=== PATIENT | female | born 1955 | race Caucasian/White ===

== ENCOUNTER 2022-12-27 18:19 | Inpatient (IN) | payer MEDICARE, OTHER ==
[2022-12-27 18:29] LABS: BASE EXCESS ARTERIAL -0.3 mm/L; BICARBONATE,ARTERIAL 21.6 mmol/L (22.0-26.0); CARBOXYHEMOGLOBIN 2.3 % (0.0-1.6); METHEMOGLOBIN 0.6 %; O2 SATURATION ARTERIAL 92.4 % (95.0-98.0); OXYHEMOGLOBIN 89.7 %; PCO2 ARTERIAL 27.1 mmHg (35.0-42.0); PO2 ARTERIAL 61.5 mmHg (75.0-100.0); TOTAL HEMOGLOBIN 10.3 g/dL (12.0-16.0)
[2022-12-27 18:30] LABS: LACTIC ACID 2.8 mmol/L (0.4-2.0)
[2022-12-27] MEDS ORDERED: Sodium Chloride 0.9% 1,000 ML IV SCH ×2 (18:30→22:00)
[2022-12-27 18:35] LABS: BASOPHILS ABSOLUTE AUTO 0.02 K/uL (0.00-0.10); BASOPHILS PERCENT AUTO 0.4 % (0.1-1.3); EOSINOPHILS ABSOLUTE AUTO 0.12 K/uL (0.00-0.40); EOSINOPHILS PERCENT AUTO 2.1 % (0.0-5.4); HEMATOCRIT 31.7 % (34.3-46.0); HEMOGLOBIN 10.1 g/dL (11.2-15.5); IMMATURE GRAN ABSOLUTE AUTO 0.02 K/uL (0.00-0.23); IMMATURE GRAN PERCENT AUTO 0.4 % (0.0-0.7); LYMPHOCYTES ABSOLUTE AUTO 0.46 K/uL (0.8-3.3); LYMPHOCYTES PERCENT AUTO 8.1 % (11.4-47.7); MEAN CORPUSCULAR HEMOGLOBIN 27.7 pg (31.6-35.5); MEAN CORPUSCULAR HGB CONC 31.9 g/dL (31.6-35.5); MEAN CORPUSCULAR VOLUME 86.8 fL (81.4-99.0); MONOCYTES ABSOLUTE AUTO 0.21 K/uL (0.20-0.90); MONOCYTES PERCENT AUTO 3.7 % (3.3-12.6); NEUTROPHILS ABSOLUTE AUTO 4.88 K/uL (1.0-7.6); NEUTROPHILS PERCENT AUTO 85.3 % (40.0-78.1); PLATELET COUNT,PLT 110 K/uL (130-375); RED BLOOD CELL COUNT 3.65 M/uL (3.77-5.24); WHITE BLOOD CELL COUNT,WBC 5.7 K/uL (3.2-11.0)
[2022-12-27] MEDS ORDERED: cefTRIAXone 1 GM in Sodium Chloride 0.9% 50 ML IV ONE (18:45)
[2022-12-27 18:51] LABS: APPEARANCE,URINE CLEAR (CLEAR); BILIRUBIN,URINE NEGATIVE (NEGATIVE); COLOR,URINE YELLOW (YELLOW); GLUCOSE,URINE NEGATIVE (NEGATIVE); KETONES,URINE NEGATIVE (NEGATIVE); LEUKOCYTE ESTERASE,URINE MODERATE (NEGATIVE); NITRITE,URINE POSITIVE (NEGATIVE); OCCULT BLOOD,URINE MODERATE (NEGATIVE); PH,URINE 5.5 (5.0-8.0); PROTEIN,URINE 30 mg/dL (NEGATIVE); UROBILINOGEN,URINE 0.2 EU/dL (0.2-1.0)
[2022-12-27 18:56] LABS: AMORPHOUS SEDIMENT,URINE NOT SEEN; BACTERIA,URINE MANY; EPITHELIAL CELLS,URINE RARE; MUCUS,URINE RARE; WBC,URINE 50-75 (0-5)
[2022-12-27 18:58] LABS: A/G RATIO 0.7 (1.2-2.2); ALANINE AMINOTRANSFERASE,ALT 33 U/L (12-78); ALBUMIN 3.3 g/dL (3.4-5.0); ALKALINE PHOSPHATASE 60 U/L (46-116); ASPARTATE AMNIOTRANSFERASE,AST 36 U/L (15-37); BLOOD UREA NITROGEN,BUN 32 mg/dL (7-18); CALCIUM 8.3 mg/dL (8.5-10.1); CARBON DIOXIDE,CO2 23 mmol/L (21-32); CHLORIDE,CL 102 mmol/L (100-108); CREATININE 1.6 mg/dL (0.6-1.0); ESTIMATED GFR 35 mL/min (>60); GLUCOSE RANDOM 171 mg/dL (74-106); PROTEIN TOTAL,TP 7.8 g/dL (6.4-8.2); SODIUM,NA 138 mmol/L (140-148); TROPONIN I HIGH SENSITIVITY 9.4 pg/mL (<=60.3)
[2022-12-27] MEDS ORDERED: Acetaminophen 500 MG Tab PO ONE (18:58)
[2022-12-27 20:29] LABS: INR 1.5; PROTHROMBIN TIME 15.2 sec (9.2-10.6)
[2022-12-27] MEDS ORDERED: Ondansetron 4 MG Tab.DIS PO PRN (21:11)
[2022-12-27] MEDS ORDERED: Magnesium Hydroxide 400 MG/5 ML Susp 30 ML Cup PO PRN (21:11)
[2022-12-27] MEDS ORDERED: Sennosides/Docusate Sodium 50-8.6 MG Tab PO PRN (21:11)
[2022-12-27] MEDS ORDERED: Ondansetron 4 MG/2 ML SDV IV PRN (21:11)
[2022-12-27] MEDS ORDERED: Melatonin 3 MG Tab PO PRN (21:11)
[2022-12-27] MEDS ORDERED: Ibuprofen 600 MG Tab PO ONE (22:23)
[2022-12-27] MEDS: Insulin Lispro 100 Unit/ML 3 ML KwikPen SUBCUT SCH (22:45)
[2022-12-27] MEDS: Methadone 5 MG Tab PO SCH (23:51)
[2022-12-28] MEDS ORDERED: Warfarin 5 MG Tab PO SCH (00:45)
[2022-12-28 04:41] LABS: BASOPHILS PERCENT AUTO 0.2 % (0.1-1.3); EOSINOPHILS ABSOLUTE AUTO 0.03 K/uL (0.00-0.40); EOSINOPHILS PERCENT AUTO 0.5 % (0.0-5.4); HEMOGLOBIN 8.4 g/dL (11.2-15.5); IMMATURE GRAN PERCENT AUTO 0.4 % (0.0-0.7); LYMPHOCYTES ABSOLUTE AUTO 0.78 K/uL (0.8-3.3); LYMPHOCYTES PERCENT AUTO 13.8 % (11.4-47.7); MEAN CORPUSCULAR HEMOGLOBIN 27.1 pg (31.6-35.5); MEAN CORPUSCULAR HGB CONC 31.1 g/dL (31.6-35.5); MEAN CORPUSCULAR VOLUME 87.1 fL (81.4-99.0); MONOCYTES ABSOLUTE AUTO 0.52 K/uL (0.20-0.90); MONOCYTES PERCENT AUTO 9.2 % (3.3-12.6); NEUTROPHILS ABSOLUTE AUTO 4.31 K/uL (1.0-7.6); NEUTROPHILS PERCENT AUTO 75.9 % (40.0-78.1); PLATELET COUNT,PLT 88 K/uL (130-375); WHITE BLOOD CELL COUNT,WBC 5.7 K/uL (3.2-11.0)
[2022-12-28 04:43] LABS: BASOPHILS ABSOLUTE AUTO 0.01 K/uL (0.00-0.10); IMMATURE GRAN ABSOLUTE AUTO 0.02 K/uL (0.00-0.23)
[2022-12-28 04:52] LABS: INR 1.6; PROTHROMBIN TIME 15.6 sec (9.2-10.6)
[2022-12-28 04:54] LABS: CALCIUM 7.6 mg/dL (8.5-10.1); CREATININE 1.6 mg/dL (0.6-1.0); EST CRCL DRUG DOSING (CG) 25.04 mL/min; POTASSIUM,K 3.5 mmol/L (3.6-5.2)
[2022-12-28 05:02] LABS: ANION GAP 13.5 mmol/L (5.0-14.0)
[2022-12-28] MEDS: Acetaminophen 325 MG Tab PO PRN ×2 (07:54→13:27)
[2022-12-28] MEDS: Methadone 5 MG Tab PO SCH ×2 (08:13→20:57)
[2022-12-28] MEDS ORDERED: Potassium Chloride 20 MEQ Tab.ER PO ONE ×2 (09:00→17:00)
[2022-12-28] MEDS: Losartan 50 MG Tab PO SCH (11:47)
[2022-12-28] MEDS: Montelukast 10 MG Tab PO SCH (11:49)
[2022-12-28] MEDS: Furosemide 40 MG Tab PO SCH (13:27)
[2022-12-28] MEDS: Gabapentin 300 MG Cap PO SCH ×2 (13:34→21:02)
[2022-12-28] MEDS ORDERED: Albuterol/Ipratropium 3.0-0.5 MG/3 ML Neb Soln NEB ONE (13:47)
[2022-12-28] MEDS ORDERED: Albuterol/Ipratropium 3.0-0.5 MG/3 ML Neb Soln NEB PRN (14:47)
[2022-12-28] MEDS ORDERED: Albuterol 6.7 GM Inhaler INH PRN (14:47)
[2022-12-28] MEDS: methylPREDNISolone Sodium Succinate 40 MG/1 ML SDV IVPUSH SCH ×2 (14:55→23:12)
[2022-12-28] MEDS: Insulin Lispro 100 Unit/ML 3 ML KwikPen SUBCUT SCH ×2 (16:33→20:58)
[2022-12-28] MEDS: Acetaminophen 325 MG Tab PO SCH ×2 (19:38→23:12)
[2022-12-28] MEDS: cefTRIAXone 1 GM in Sodium Chloride 0.9% 50 ML IV SCH (19:39)
[2022-12-28] MEDS: rOPINIRole 1 MG Tab PO SCH (21:02)
[2022-12-29 04:55] LABS: HEMOGLOBIN 8.9 g/dL (11.2-15.5); IMMATURE GRAN PERCENT AUTO 0.6 % (0.0-0.7); LYMPHOCYTES ABSOLUTE AUTO 0.32 K/uL (0.8-3.3); LYMPHOCYTES PERCENT AUTO 10.3 % (11.4-47.7); MEAN CORPUSCULAR HEMOGLOBIN 27.6 pg (31.6-35.5); MEAN CORPUSCULAR HGB CONC 31.8 g/dL (31.6-35.5); MEAN CORPUSCULAR VOLUME 86.7 fL (81.4-99.0); MONOCYTES ABSOLUTE AUTO 0.09 K/uL (0.20-0.90); MONOCYTES PERCENT AUTO 2.9 % (3.3-12.6); NEUTROPHILS ABSOLUTE AUTO 2.69 K/uL (1.0-7.6); NEUTROPHILS PERCENT AUTO 86.2 % (40.0-78.1); PLATELET COUNT,PLT 90 K/uL (130-375); RED BLOOD CELL COUNT 3.23 M/uL (3.77-5.24); WHITE BLOOD CELL COUNT,WBC 3.1 K/uL (3.2-11.0)
[2022-12-29] MEDS: Acetaminophen 325 MG Tab PO SCH ×5 (05:03→20:26)
[2022-12-29 05:15] LABS: IMMATURE GRAN ABSOLUTE AUTO 0.02 K/uL (0.00-0.23)
[2022-12-29 05:18] LABS: INR 1.3; PROTHROMBIN TIME 13.4 sec (9.2-10.6)
[2022-12-29 05:42] LABS: CALCIUM 7.8 mg/dL (8.5-10.1); CREATININE 1.4 mg/dL (0.6-1.0); EST CRCL DRUG DOSING (CG) 28.62 mL/min
[2022-12-29] MEDS: Insulin Lispro 100 Unit/ML 3 ML KwikPen SUBCUT SCH ×4 (08:02→21:20)
[2022-12-29] MEDS: Potassium Chloride 10 MEQ Cap.ER PO SCH ×2 (08:20→20:27)
[2022-12-29] MEDS: Methadone 5 MG Tab PO SCH ×2 (08:20→20:26)
[2022-12-29] MEDS: methylPREDNISolone Sodium Succinate 40 MG/1 ML SDV IVPUSH SCH ×2 (08:20→14:01)
[2022-12-29] MEDS: Furosemide 40 MG Tab PO SCH ×2 (08:21→13:58)
[2022-12-29] MEDS: Gabapentin 300 MG Cap PO SCH ×3 (08:21→20:27)
[2022-12-29] MEDS: Montelukast 10 MG Tab PO SCH (08:21)
[2022-12-29] MEDS: Losartan 50 MG Tab PO SCH (08:21)
[2022-12-29] MEDS: oxyCODONE 5 MG Tab PO PRN (11:00)
[2022-12-29] MEDS: cefTRIAXone 1 GM in Sodium Chloride 0.9% 50 ML IV SCH (18:29)
[2022-12-29] MEDS: rOPINIRole 1 MG Tab PO SCH (20:27)
[2022-12-30] MEDS: Acetaminophen 325 MG Tab PO SCH ×6 (00:32→19:25)
[2022-12-30] MEDS: methylPREDNISolone Sodium Succinate 40 MG/1 ML SDV IVPUSH SCH ×2 (00:33→07:40)
[2022-12-30 06:16] LABS: INR 1.4; PROTHROMBIN TIME 14.1 sec (9.2-10.6)
[2022-12-30] MEDS: Furosemide 40 MG Tab PO SCH ×2 (07:41→13:28)
[2022-12-30] MEDS: Methadone 5 MG Tab PO SCH ×2 (08:22→20:34)
[2022-12-30] MEDS: Gabapentin 300 MG Cap PO SCH ×3 (08:23→20:34)
[2022-12-30] MEDS: Losartan 50 MG Tab PO SCH (08:24)
[2022-12-30] MEDS: Potassium Chloride 10 MEQ Cap.ER PO SCH ×2 (08:24→20:34)
[2022-12-30] MEDS: Montelukast 10 MG Tab PO SCH (08:24)
[2022-12-30] MEDS: Insulin Lispro 100 Unit/ML 3 ML KwikPen SUBCUT SCH ×4 (08:27→22:00)
[2022-12-30] MEDS: oxyCODONE 5 MG Tab PO PRN ×2 (11:43→17:01)
[2022-12-30] MEDS: cefTRIAXone 1 GM in Sodium Chloride 0.9% 50 ML IV SCH (19:24)
[2022-12-30] MEDS: rOPINIRole 1 MG Tab PO SCH (20:34)
[2022-12-31] MEDS: Acetaminophen 325 MG Tab PO SCH ×3 (01:25→08:47)
[2022-12-31 06:02] LABS: ANION GAP 10.6 mmol/L (5.0-14.0); CALCIUM 8.5 mg/dL (8.5-10.1); CREATININE 1.4 mg/dL (0.6-1.0); EST CRCL DRUG DOSING (CG) 28.62 mL/min; POTASSIUM,K 3.6 mmol/L (3.6-5.2)
[2022-12-31 06:03] LABS: PROTHROMBIN TIME 19.4 sec (9.2-10.6)
[2022-12-31] MEDS: Methadone 5 MG Tab PO SCH (08:45)
[2022-12-31] MEDS: Potassium Chloride 10 MEQ Cap.ER PO SCH (08:46)
[2022-12-31] MEDS: Gabapentin 300 MG Cap PO SCH (08:46)
[2022-12-31] MEDS: Losartan 50 MG Tab PO SCH (08:47)
[2022-12-31] MEDS: Furosemide 40 MG Tab PO SCH (08:47)
[2022-12-31] MEDS: Montelukast 10 MG Tab PO SCH (08:47)
[2022-12-31] MEDS: oxyCODONE 5 MG Tab PO PRN (11:20)
== END 2022-12-31 13:13 | disposition home or self-care (01) | DRG 871 ==
LOC: JP.ED 18:19 → JP.MS 20:03
PROVIDERS: ADMIT Hospitalist; ATTEND Internal Medicine
PROC: 4A13XR1 Monitoring of Arterial Saturation, Peripheral, External Approach (ICD-10-PCS; principal; 2022-12-27)
PROC: 8E0ZXY6 Isolation (ICD-10-PCS; 2022-12-27)
PROC: 3E03329 Introduction of Other Anti-infective into Peripheral Vein, Percutaneous Approach (ICD-10-PCS; 2022-12-27)
DX: A41.51 Sepsis due to Escherichia coli [E. coli] (principal); G93.41 Metabolic encephalopathy; A41.9 Sepsis, unspecified organism; U07.1 COVID-19; N17.9 Acute kidney failure, unspecified; N30.00 Acute cystitis without hematuria; N39.0 Urinary tract infection, site not specified; R65.20 Severe sepsis without septic shock; E86.0 Dehydration; M62.89 Other specified disorders of muscle; B96.20 Unspecified Escherichia coli [E. coli] as the cause of diseases classified elsewhere; E11.22 Type 2 diabetes mellitus with diabetic chronic kidney disease; I12.9 Hypertensive chronic kidney disease with stage 1 through stage 4 chronic kidney disease, or unspecified chronic kidney disease; Z96.649 Presence of unspecified artificial hip joint; Z96.619 Presence of unspecified artificial shoulder joint; N18.31 Chronic kidney disease, stage 3a; Z86.711 Personal history of pulmonary embolism; Z85.3 Personal history of malignant neoplasm of breast; J45.909 Unspecified asthma, uncomplicated; Z79.01 Long term (current) use of anticoagulants; Z86.718 Personal history of other venous thrombosis and embolism; Z79.84 Long term (current) use of oral hypoglycemic drugs; Z79.899 Other long term (current) drug therapy; Z87.440 Personal history of urinary (tract) infections
CPT/HCPCS: 36415; 71045; 80053; 81001; 82803; 83605; 84484; 85025; 85610; 87040 ×2; 87077; 87086; 87088; 87186 ×2; 93005; 93010; 96365; 99285 ×2; A9270; J0696; J3490; J7030; U0002; 80048; 82947; 94640; 99223; 99232; 99238; J1815; J2920; J7620